=== PATIENT | male | born 1990 | race Two or more races ===

== ENCOUNTER 2024-12-08 00:53 | Emergency (ER) | payer SELFPAY ==
[2024-12-08 00:55] VITALS: BMI 25.6
--- NOTE | 2024-12-08 01:06 | PD.EDMEDCL ---
ED Medical Clearance RME/HPI General Chief complaint: Medical Clearance Stated complaint: MEDICAL CLEARANCE Time Seen by Provider: 12/08/24 01:06 PDT Arrival date/time: 12/08/24 00:53 RME / STEFANO JACOBS complaint: medical clearance requested Reason for Medical Clearance: intoxication Alleged Intoxication: Yes Traumatic Symptoms: abrasion Treatments Prior to Arrival: none RME / HPI Narrative: See [facility] for Dr. Rodriguez's HPI Documentation. Related Information Allergies Allergy/AdvReac Type Severity Reaction Status Date / Time No Known Allergies Allergy Verified 12/08/24 00:58 Review of Systems Review of Systems Systems Reviewed: All systems reviewed, normal except as documented Past Medical History Social History SMOKING STATUS: Never smoker ALCOHOL: Current ALCOHOL LAST INTAKE: Just Prior to Arrival ED Exam Narrative Physical exam: See [facility] for Dr. Rodriguez's Physical Exam Documentation. Course Quality Measures none Orders Category Date Time Status Wound Care [Wound Care] NOW Care 12/08/24 01:06 Active Bacitracin Oint pkt Med 12/08/24 01:06 Discontinued 1 gm TOP X1 ONE TET,DIP/PERT AC (Adult)-Tdap [Boostrix Adult (Tdap) Med 12/08/24 01:06 Discontinued Vacc] 0.5 ml IMI .ONCE ONE Vital Signs Vital signs: Vital Signs Temperature 97.4 F 12/08/24 01:07 PDT Pulse Rate 105 H 12/08/24 01:07 PDT Respiratory Rate 18 12/08/24 01:07 PDT Blood Pressure 145/92 H 12/08/24 01:07 PDT Pulse Oximetry (%) 98 12/08/24 01:07 PDT Oxygen Delivery Method Room Air 12/08/24 01:07 PDT Medical Clearance [facility] Narrative [facility] Narrative:: This section includes all my notes and documentations, including HPI, PE, and ED course. José Luis Rodriguez MD HPI: 34 y/o male BIB law enforcement for [facility] medical clearance. Because he resisted arrest, he was tackled. He reports no headache or dizziness. No neck pain or back pain. No chest pain or abdominal pain. No pain in the arms or legs. No other complaints. ROS: All negative except as documented in HPI. Physical Exam: General:? Alert and oriented.? No acute distress.? Eyes:? Conjunctivae and lids clear.? EOMI.? PERRL. ENT:? No signs of head trauma. Neck:? Supple.? No tenderness. Heart:? RRR. Lungs:? No respiratory distress.? Good air movement.? No rhonchi, wheezing, rales.? Chest:? No tenderness. Abdomen:? Soft and nontender.? Normal bowel sounds.? No distension.? No rebound or guarding.? Back:? No tenderness.? Skin:? Warm and dry.? Multiple skin abrasions noted, varying size and shape. Neuro:? Alert and oriented X 3.? Cranial Nerves II-XII grossly intact.? No peripheral motor deficits. Musculoskeletal:? All major joints and bones are not tender with no limited ROM. At this point, diagnoses include: Multiple Abrasions I ordered Tdap and wound care with topical ABX. Based on my best medical judgment, made decision to medically clear the patient and no further evaluation or treatment indicated at this time. Patient understands and agrees to the discharge instructions customized and printed, see below. Discharge Instructions from Dr. Rodriguez printed for you: 1. With no evidence of severe injury, you are medically cleared for [facility]. 2. Wound care of your skin abrasions as instructed in the attached handout. 3. Seek immediate medical care with fever, spreading redness from a wound, or with any concerns. José Luis Rodriguez MD Patient data External records reviewed:: [facility] previous records (No prior ED records available for review) Clinical information provided by:: patient and law enforcement Social determinants that could affect healthcare access:: alcohol use Patient has the following chronic illnesses:: None reported How is presenting disease/condition affected by chronic disease/condition?: no chronic disease Evaluation data The following diagnostics were reviewed and interpreted by me:: other (specify) (N/A) Lab and/or radiology exams considered but not ordered:: None Interpretation Summary: N/A Medications / Prescriptions Medications or Prescriptions considered but not ordered:: None Medication administrations:: Medication Administration History Discontinued Medications Bacitracin (Bacitracin Oint 1 Gm Packet) 1 gm TOP X1 ONE Stop: 12/08/24 01:07 PST Last Admin: 12/08/24 01:17 PDT Dose: Not Given Documented By: SE Non-Admin Reason: Patient Refused Diphtheria/Tetanus/Acell Pertussis (Diphth,Pertuss(Acell),Tet Vac 0.5 Ml Syr- Adult) 0.5 ml IMi .ONCE ONE Stop: 12/08/24 01:07 PST Last Admin: 12/08/24 01:17 PDT Dose: Not Given Documented By: SE Non-Admin Reason: Patient Refused I ordered Tdap and wound care with topical ABX. Consultations Consultation(s) initiated? (list below): No Diagnosis Medical Clearance Differential Diagnosis: other (Laceration, Abrasion, Alcohol Intoxication) Most likely diagnosis given after review of the tests above:: Multiple Abrasions Admission Indicated Admission indicated?: not indicated Explain why admission is indicated or not indicated:: With no condition needing emergent intervention, there was no indication for admission. Admission Request Was there a request for admission?: No Disposition Plan Disposition Plan: Discharge (Signed out to law enforcement) Discharge Attestation Discharge Attestation: The patient and all family members were given an opportunity to ask questions and understood the discharge instructions. Discharge instructions specifically effects, indications for sooner follow up or return to the emergency department, and the expected course of current diagnosis. Patient condition: Stable Discharge Plan Plan Patient Disposition: Prison/Court/Law Problem List Clinical Impression: Multiple abrasions Patient/Caregiver Discharge Instructions Discharge Activity: activity as tolerated Education Materials: ED Abrasions Additional Instructions: Discharge Instructions from Dr. Rodriguez printed for you: 1. With no evidence of severe injury, you are medically cleared for [facility]. 2. Wound care of your skin abrasions as instructed in the attached handout. 3. Seek immediate medical care with fever, spreading redness from a wound, or with any concerns. Instrucciones de noemy del Dr. Rodriguez impresas para usted: 1. Sin evidencia de lesiones graves, usted est? m?dicamente apto para ingresar a prisi?n. 2. Cuide rebecca abrasiones cut?neas seg?n las instrucciones del folleto adjunto. 3. Busque atenci?n m?dica inmediata si presenta fiebre, enrojecimiento que se extiende desde thanh herida o cualquier otra inquietud. Print Language: British
[2024-12-08 01:07] VITALS: BP 145/92; PULSE 105; RESP 18; TEMP 36.3; O2SAT 98
== END 2024-12-08 01:18 ==
LOC: SERX 01:20
PROVIDERS: Emergency Provider Emergency Medicine
DX: Z02.89 Encounter for other administrative examinations (principal); T14.8XXA Other injury of unspecified body region, initial encounter; Y35.813A Legal intervention involving manhandling, suspect injured, initial encounter
CPT/HCPCS: 99281